=== PATIENT | female | born 1940 | race Caucasian/White ===

== ENCOUNTER 2016-08-23 18:37 | Emergency (ER) | payer MEDICARE, BC ==
--- NOTE | ~2016-08-23 | CT4 ---
[facility] A Service of [facility] RADIOLOGY TEXT RESULTS PATIENT: LUCIO BUTT LOCATION: [facility] : 44 UNIT #: [id number] AGE: [address]: Sangita Israel MD SEX: F ORDER DR: [id number] [facility] [address] [place], [place] [address] [id number] E MR#: [id number] Acc #: [id number] NAME: LUCIO BUTT. : 1940 SEX: F STUDY DATE/TIME: 08/23/2016 20:53 UNIT: [facility] ROOM: STUDY DESCRIPTION: CT Abd and Pelv Wo Cont Attending Physician: Sangita Israel M.D. Ordering Physician: Sangita Israel M.D. Primary Care Physician: Vasile Cowan M.D. MEDICAL IMAGING REPORT This report is preliminary unless electronic signature is present EXAM CT of the abdomen and pelvis without contrast media HISTORY Abdominal pain, black stools for 6 days. Pain diffusely. TECHNIQUE Axial imaging of the abdomen and pelvis was performed without contrast media. This CT examination was performed with one or more of the following radiation dose reduction techniques: automatic exposure control, adjustment of mA and/or kV according to patient size, and iterative reconstruction. FINDINGS Lung bases are clear. Liver and spleen are normal. Gallbladder is absent. Pancreas is normal. Adrenal glands are normal. Right and left kidney appear normal. There is extensive colonic diverticulosis. Appendix is normal. There is no evidence of colon wall thickening or adjacent inflammation to suggest diverticulitis. Uterus is unremarkable. No pelvic masses or fluid collections are present. Mild degenerative disc bulging is seen at the lower 3 lumbar levels. CONCLUSION 1. Status post cholecystectomy. 2. Extensive colonic diverticulosis without CT evidence of diverticulitis. No acute findings in the abdomen or pelvis. Dictated by... Srini Ford M.D. THIS IS AN ELECTRONICALLY VERIFIED REPORT [facility] A Service of [facility] RADIOLOGY TEXT RESULTS PATIENT: LUCIO BUTT LOCATION: [facility] #: [id number] : 44 UNIT #: [id number] AGE: [address]: Sangita Israel MD SEX: F ORDER DR: Srini Ford M.D. at 08/24/2016 6:08 PM MARTÍN/billy TD: 08/24/2016 07:15 JOB #: [id number] MEDICAL IMAGING REPORT Page 1 of 1 COPY
[~2016-08-23 18:37] MED LIST: ADVAIR 1001 DISK W/D PO; ALLEGRA PO; ALLEGRA180 MG PO; AUGMENTIN PO; CERTAGEN PO; DICLOFENAC PO; DOC-Q-LACE100 MG PO; FLAGYL PO; KADIAN; KEFLEX PO; KLONOPIN; KLONOPIN PO; LEVAQUIN PO; LORCET 10/650 T1 TAB PO; LORTAB 10/500 T1 TAB PO; LYRICA PO; PV NEURO VITE T1 TAB PO; TRAZODONE; TRAZODONE PO; TUSSIONEX PENN473 ML PO; VITAMIN C500 M1 PO; WELLBUTRIN PO; WELLBUTRIN SR; WELLBUTRIN SR PO
[2016-08-23 19:59] LABS: URINE SOURCE CLEAN CATCH
[2016-08-23 20:04] LABS: BASOPHIL# 0.1 X10e3 (0-0.3); BASOPHIL% 0.8 % (0-2.5); DIFF IND NO; EOSINOPHIL# 0.2 X10e3 (0-0.7); EOSINOPHIL% 1.4 % (0.0-7.0); HEMATOCRIT 46.1 % (35.0-45.0); LYMPHOCYTE# 2.1 X10e3 (1.0-3.5); LYMPHOCYTE% 17.2 % (17.0-45.0); MEAN CELL VOLUME 90.7 FL (83-96); MEAN CORPUSCULAR HEMOGLOBIN 29.4 PG (28-34); MEAN CORPUSCULAR HGB CONC 32.4 g/dL (30-36); MEAN PLATELET VOLUME 8.8 FL (6.5-11.5); MONOCYTE% 8.3 % (3.0-12.0); NEUTROPHIL% 72.3 % (40-75); PLATELET COUNT 271 X10e3 (140-420); RED BLOOD COUNT 5.09 X10e (3.90-5.30); RED CELL DISTRIBUTION WIDTH 15.3 % (11.0-15.5); WHITE BLOOD COUNT 12.4 X10e3 (4.0-10.5)
[2016-08-23 20:05] LABS: URINE APPEARANCE CLEAR; URINE BILIRUBIN NEG (NEG); URINE BLOOD NEG (NEG); URINE COLOR DK YELLOW; URINE GLUCOSE NEG (NEG); URINE KETONE NEG (NEG); URINE LEUKOCYTE ESTERASE TRACE (NEG); URINE NITRATE NEG (NEG); URINE PROTEIN NEG (NEG); URINE SPECIFIC GRAVITY 1.024 (1.003-1.035)
[2016-08-23 20:06] LABS: URBCS1 AUWI 0-2 /[HPF] (0-2); URINE BACTERIA AUWI NEG (NEGATIVE); URINE SQUAMOUS EPITHELIAL CELL NONE SEEN /[HPF]
[2016-08-23 20:12] LABS: CULTURE INDICATED? NO
[2016-08-23 20:19] LABS: INR 1.1; PARTIAL THROMBOPLASTIN TIME 29.2 SECONDS (23.5-31.3); PROTHROMBIN TIME (PATIENT) 11.2 SECONDS (9.6-11.5)
[2016-08-23 20:30] LABS: ALBUMIN SERUM 4.1 g/dL (3.5-5.0); BILIRUBIN, DIRECT 0.1 mg/dL (0.0-0.2); BILIRUBIN,INDIRECT 0.2 mg/dL (0.0-0.9); BILIRUBIN,TOTAL 0.3 mg/dL (0.2-2.0); CALCIUM SERUM 9.5 mg/dL (8.4-10.2); GLOM FILT RATE Estimated 55.5 mL/min (>60); POTASSIUM 3.9 mmol/L (3.5-5.1); PROTEIN TOTAL SERUM 7.5 g/dL (6.0-8.3)
== END 2016-08-23 22:10 | disposition home or self-care (01) ==
LOC: CED 18:37
PROVIDERS: Student in an Organized Health Care Education/Training Program
DX: R10.84 Generalized abdominal pain (principal); F17.210 Nicotine dependence, cigarettes, uncomplicated; Z90.49 Acquired absence of other specified parts of digestive tract; Z88.8 Allergy status to other drugs, medicaments and biological substances
CPT/HCPCS: 36415; 74176; 80048; 80076; 81003; 83690; 85025; 85610; 85730; 86850; 86900; 86901; 96361; 96374; 96375; 99284; C9113; J2405